=== PATIENT | male | born 1945 | race Caucasian/White ===

== ENCOUNTER 2023-01-12 18:01 | Emergency (ER) | payer OTHER ==
--- OUTSIDE RECORDS SUMMARY | 2023-01-12 18:04 | XMS REPORT | Continuity of Care Document ---
:1945 Author Organization [facility] t Address [address] [facility] [address] [place] [address] Care Team Providers Name Role Phone Tari Saravia MD Primary Care Physician Ian Cristina Attending Clinician Unavailable PADMINI SHER Attending Clinician Unavailable TARI SARAVIA Attending Clinician Unavailable FABRICIO ZHANG Attending Clinician Unavailable RENAE MARADIAGA Attending Clinician Unavailable MD NANNETTE ANDERSON Attending Clinician Unavailable JACKI CALDERON Attending Clinician Unavailable DEO AGUILAR Attending Clinician Unavailable Catrachito Attending Clinician Unavailable MICHAEL TALLEY Attending Clinician Unavailable MD MICHAEL TALLEY Attending Clinician UnavailALBERTA Quevedo Admitting Clinician Unavailable NANNETTE ANDERSON Admitting Clinician Unavailable Catrachito Admitting Clinician Unavailable MICHAEL TALLEY Admitting Clinician Unavailable MD MICHAEL TALLEY Admitting Clinician Unavaila henny Payers Payer Name Policy Type Policy Number Effective Date Expiration Date S ource Problems Condition Condition Condition Status Onset Resolution Last Treating Co mments Source Name Details Category Date Date Treatment Clinician Date CAROLINE (acute CAROLINE (acute Disease Active M ethodi kidney kidney 4-12 st injury) injury) 00:00: Hospita 00 l Hemorrhagi Hemorrhagi Disease Active Overview : Methodi c stroke c stroke 4-[address] 00:00: g of this Hospita 00 note l might be different from the original. Admission 05/20/2021 to 05/27/2021 . 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 3-03 st hemorrhage hemorrhage 00:00: Ho spita 00 l Parkinsoni Parkinsoni Disease Active M ethodi sm sm [address] st 00:00: Hospita 00 l Altered Altered Disease Active Methodi mental mental 10-05 st status status 00:00: Hospita 00 l Palpitatio Palpitatio Disease Active M ethodi ns ns 7 st 00:00: Hospita 00 l Allergies, Adverse Reactions, Alerts Allergy Allergy Status Severity Reaction(s) Onset Inactive Treating Comm ents Source Name Type Date Date Clinician Hunter Franco Active Itching Metho di n ty to [address] adverse 00:00: the body Hospita reaction 00 l s to drug Social History Social Habit Start Date Stop Date Quantity Comments Source Sexual orientation [facility] History of Social 2022-08-11 2022-08-[address] function 00:00:00 00:00:00 Hospital Alcohol intake 2022-08-11 2022-08-11 Current drinker [facility]o dist 00:00:00 [facility] Tobacco use and 2022-03-29 2022-03-29 Smokeless Shinto exposure 00:00:00 00:00:00 tobacco non-user Hospital Alcohol Comment 2021-01-27 2021-01-27 Wine sometime in Met hodist 00:00:00 00:00:00 evening. [facility] went hot outside maybe 1 or 2 Sex Ass[birth year] At [birth year] M Shinto 00:00:00 00:00:00 Hospital Smoking Status Start Date Stop Date Source Never smoked tobacco [facility] Medications Ordered Filled Start Stop Current Ordering Indication Dosage Frequency Signature Comments Components Source Medication Medication Date Date Medication? Clinician (SIG) Name Name escitalopra Yes 20mg QD Take 20 mg Methodi m (LEXAPRO) 1-[address] 20 MG 09:07: daily. Hospita tablet 55 l finasteride Yes 5mg QD Take 5 mg M ethodi (PROSCAR) 5 1-[address] mg tablet 09:07: daily. Hospit a 55 l carbidopa-l Yes 1.5{tbl Q.[id number] Take 1.5 Methodi evodopa 1-10 } [id number] tablets by st (SINEMET) 09:07: 3D mouth 3 Hospi ta 25-100 mg 55 (three) l per tablet times a day. polyethylen Yes 17g Q24H Take 17 g M ethodi e glycol 1-[address] (MIRALAX) 09:07: daily as Hosp mahesh 17 gram 55 needed for l packet constipati on. hydrocortis Yes Q.5D Apply Metho di one 2.5 % 1-[address] cream 09:07: 2 (two) Hospita 55 times a l day as needed for irritation or rash. On scalp metoprolol 2021-03 Yes TAKE 1/2 Met hodi tartrate 2-14 (ONE-HALF) st (LOPRESSOR) 00:00: TABLET BY H ospita 25 mg 00 MOUTH l tablet TWICE DAILY . APPOINTMEN T REQUIRED FOR FUTURE REFILLS atorvastati 2021-03 Yes 40mg QD Take 1 Meth monty n (LIPITOR) 1-01 tablet (40 st 40 mg 00:00: mg total) Hospita tablet 00 by mouth l nightly. memantine Yes [id number] 10mg QD Take 1 Me thodi (NAMENDA) 4-21 tablet (10 st 10 MG 00:00: mg total) Hospita tablet 00 by mouth l every morning. progesteron 2022- No [id number] 100mg QD Take 1 Methodi e 4-21 01-[address] (PROMETRIUM 00:00: 00:00 (100 mg Ho spita ) 100 MG 00 :00 total) by l capsule mouth daily. TAKE 1 CAPSULE BY MOUTH AT BEDTIME FOR BONES, NERVES, MUSCLES, SLEEP minocycline 2022- No TAKE 1 Met hodi (MINOCIN) 3-24 01-[address] 100 MG 00:00: 00:00 MOUTH Hospita capsule 00 :00 TWICE l DAILY FOR STEM CELL STIMULATIO N Immunizations Ordered Immunization Filled Immunization Date Status Commen ts Source Name Name Zoster Vaccine Unknown Completed [facility] FLUCELVAX QUAD PF Unknown Completed [facility] COVID-19 MRNA Unknown Completed [facility] COVID-19 MRNA Unknown Completed [facility] COVID-19 MRNA Unknown Completed [facility] Vital Signs Vital Name Observation Time Observation Value Comments Source Systolic blood 2022-03-29 15:04:00 133 mm[Hg] [facility] pressure Diastolic blood 2022-03-29 15:04:00 73 mm[Hg] [facility]o [facility] pressure Heart rate 2022-03-29 15:04:00 69 /min [facility] Body height 2022-03-29 15:04:00 177.8 cm [facility] Body weight 2022-03-29 15:04:00 90.266 kg [facility] BMI 2022-03-29 15:04:00 28.55 kg/m2 [facility] Oxygen saturation in 2022-03-29 15:04:00 95 /min [facility] Arterial blood by Pulse oximetry Procedures Procedure Date / Time Performed Performing Clinician Sourc e US THYROID 2022-03-31 20:04:59 Padmini Sher [facility] Plan of Care Planned Activity Planned Date Details Comments Source Future Scheduled 2023-01-07 Hepatitis C screening [facility] Test 02:21:15 (procedure) [code = 954728794] Future Scheduled 2023-01-07 RSV VACCINES > 60 YR [facility] Test 02:21:15 (1 - 1-dose 60+ series) [code = RSV VACCINES > 60 YR (1 - 1-dose 60+ series)] Future Scheduled 2023-01-07 65+ PNEUMOCOCCAL [facility] Test 02:21:15 VACCINE (1 - PCV) [code = 65+ PNEUMOCOCCAL VACCINE (1 - PCV)] Future Scheduled 2023-01-07 SHINGLES VACCINES (2 [facility] Test 02:21:15 of 2) [code = SHINGLES VACCINES (2 of 2)] Future Scheduled 2023-01-07 COVID-19 VACCINE (4 - [facility] Test 02:21:15 ) [code = COVID-19 VACCINE (4 - season)] Future Scheduled 2023-01-07 INFLUENZA VACCINE (#1) [facility] Test 02:21:15 [code = INFLUENZA VACCINE (#1)] Encounters Start End Encounter Admission Attending Care Care Encounter Source Date/Time Date/Time Type Type Clinicians Facility Department ID 2022-05-17 2022-05-17 Documentat Ibeth 1.2.840.1 [id number] Methodi 00:00:00 00:00:00 ion Ian Mckenzie [id number] 3.430.2.7 Hospit a .3.513217 l .8 2022-03-31 2022-03-31 Outpatient [facility] [id number] [place] 00:00:00 00:00:00 OSORIO 209 Method i PADMINI 2022-03-29 2022-03-29 Office [facility] 1.2.840.1 [id number] Methodi 09:00:00 09:50:28 Visit Osorio [id number] 157 Padmini B. 3.430.2.7 Hospi ta .3.406369 l .8 2022-03-29 2022-03-29 Outpatient [facility] [id number] [place] 00:00:00 00:00:00 OSORIO, 157 Method i PADMINI 2022-03-29 2022-03-29 Travel 1.2.840.1 [id number] Methodi 00:00:00 00:00:[address] 3.430.2.7 0.2.7.3.698 spita .3.312787 084.8 l .8 2021-07-08 2021-07-08 [facility] [id number] [place] 00:00:00 00:00:00 RAJAVI [address] 2021-06-29 2021-06-30 Outpatient FABRICIO ZHANG [facility] [id number] [place] 00:00:00 00:00:[address] 2021-06-28 2021-06-28 [facility] [id number] [place] 00:00:00 00:00:00 RAJAVI [address] 2021-06-21 2021-06-21 Outpatient [facility] [id number] [place] 00:00:00 00:00:00 TARI [address] 2021-06-08 2021-06-08 Outpatient [facility] [id number] 18:36:00 18:36:00 -[id number] [facility] 2021-06-05 2021-06-05 Outpatient [facility] [id number] 03:03:00 03:03:00 -[id number] [facility] 2021-06-04 2021-06-04 Outpatient [facility] [id number] 09:27:00 09:27:00 -[id number] [facility] 2021-06-03 2021-06-03 Outpatient [facility] [id number] 09:31:00 09:31:00 -[id number] [facility] 2021-06-01 2021-06-01 Outpatient [facility] [id number] 00:32:00 00:32:00 -[id number] [facility] 2021-05-28 2021-05-28 Outpatient [facility] [id number] 04:24:00 04:24:00 -[id number] [facility] 2021-05-27 2021-05-27 Outpatient [facility] [id number] 22:14:00 22:14:00 -[id number] [facility] 2021-05-20 2021-05-27 Inpatient RENAE MARADIAGA [facility] [address] [place] 00:00:00 00:00:[address] 2021-05-20 2021-05-20 Emergency DE [place], [facility] [id number] [place] 00:00:00 00:00:[address] 2021-03-15 2021-03-15 Outpatient [facility] [id number] [place] 00:00:00 00:00:00 Nabil AC Method i PADMINI st 2021-01-28 2021-01-28 Outpatient [facility] [id number] [place] 00:00:00 00:00:00 OSORIO, Beata Method i PADMINI st 2021-01-27 2021-01-27 Outpatient [facility] [id number] [place] 00:00:00 00:00:00 , DEO [address] 2021-01-27 2021-01-27 Outpatient [facility] [id number] [place] 00:00:00 00:00:00 TARI [address] 2020-10-27 2020-10-27 Outpatient Yerramadha_ VFP VFP 171 [id number] [facility] 03:10:00 03:10:00 M [id number] Family Practic e 2020-07-16 2020-07-16 Outpatient [facility] [id number] [place] 00:00:00 00:00:00 , DEO [address] 2020-06-19 2020-06-20 Outpatient CORRALES-KAMLESH [facility] [id number] [place] 00:00:00 00:00:[address] Results Test Description Test Time Test Comments Results Result Comments Source SARS-CoV-2 (COVID-19) RNA [Presence] in Respiratory sp ecimen by 2021-06-30 10:27:43 OG with probe detection Test Item Value Reference Range Interpretation Comme nts SARS-CoV-2 (COVID-19) RNA [Presence] in Respiratory specimen by Not detected OG with probe detection (test code = 69492-4) Whether patient is employed in a healthcare setting (test code = Un known 33852-8) Whether the patient has symptoms related to condition of interest U nknown (test code = 80270-5) Whether the patient was hospitalized for condition of interest Unkn own (test code = 83400-3) Whether the patient was admitted to intensive care unit (ICU) for U nknown condition of interest (test code = 57928-6) Whether patient resides in a congregate care setting (test code = U nknown 25948-3) status (test code = 88537-8) Unknown Date and time of symptom onset (test code = 87623-0) [facility] [Presence] in Respiratory specimen by OG with probe [id number] 14:44:30 Test Item Value Reference Range Interpretation Comments SARS coronavirus RNA [Presence] Not detected in Isolate by OG with probe detection (test code = 10646-9) Whether patient is employed in a Unknown healthcare setting (test code = 52390-3) Whether the patient has symptoms Unknown related to condition of interest (test code = 74019-7) Whether the patient was Unknown hospitalized for condition of interest (test code = 42008-0) Whether the patient was admitted Unknown to intensive care unit (ICU) for condition of interest (test code = 85107-4) Whether patient resides in a Unknown congregate care setting (test code = 88458-2) status (test code = Unknown 93135-4) Date and time of symptom onset Unknown (test code = 07773-2) TEOFILO LARIOSSARS-CoV-2 (COVID-19) RNA [Presence] in Respiratory specimen by OG with probe [id number] 14:44:30 Test Item Value Reference Range Interpretation Comments SARS-CoV-2 (COVID-19) RNA Not detected [Presence] in Respiratory specimen by OG with probe detection (test code = 96695-1) Whether patient is employed in a Unknown healthcare setting (test code = 44404-1) Whether the patient has symptoms Unknown related to condition of interest (test code = 25085-1) Whether the patient was Unknown hospitalized for condition of interest (test code = 25796-6) Whether the patient was admitted Unknown to intensive care unit (ICU) for condition of interest (test code = 83345-9) Whether patient resides in a Unknown congregate care setting (test code = 33570-3) status (test code = Unknown 97310-2) Date and time of symptom onset Unknown (test code = 73971-5) TEOFILO LARIOSSARS-CoV-2 (COVID-19) RNA [Presence] in Respiratory specimen by OG with probe [id number] 01:54:16 Test Item Value Reference Range Interpretation Comments SARS-CoV-2 (COVID-19) RNA Not detected Not-Detected [Presence] in Respiratory specimen by OG with probe detection (test code = 01289-0) [facility]
--- NOTE | 2023-01-12 19:24 | RAD REPORT ---
EXAM DESCRIPTION: Yanira Single View01/12/2023 6:56 pm CLINICAL HISTORY: cough COMPARISON: none FINDINGS: The lungs appear clear of acute infiltrate. The heart is normal size IMPRESSION: No acute abnormalities displayed
--- NOTE | 2023-01-12 19:27 | RAD REPORT ---
EXAM DESCRIPTION: CT - Head Brain Wo Cont - 01/12/2023 7:19 pm CLINICAL HISTORY: Alteration of awareness/confusion COMPARISON: None TECHNIQUE: Computed axial tomography of the head was obtained. IV contrast was not requested. All CT scans are performed using dose optimization technique as appropriate and may include automated exposure control or mA/KV adjustment according to patient size. FINDINGS: An intracranial bleed is not seen The ventricles are normal in caliber No extra-axial fluid collection is noted. 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 The volume loss results in dilatation of the occipital horn left lateral ventricle. Fluid within the sinuses/ mastoids is not seen. Mild chronic sinusitis IMPRESSION: No acute intracranial abnormality is seen If patient's symptoms persist MRI of the brain would be recommended
[2023-01-12 19:58] LABS: Absolute Lymphocytes (CBC) 0.5 K/uL (0.7-4.9); Hematocrit 39.4 % (39.6-49.0); MCV 94.9 fL (80-100); MPV 7.8 fL (7.6-11.3); Platelets 120 thou/uL (152-406); RBC Red Blood Cell Count 4.15 M/uL (4.33-5.43)
[2023-01-12 19:59] LABS: Protime INR 1.08
[2023-01-12 20:21] LABS: Albumin 3.6 g/dL (3.4-5.0); Bilirubin Direct 0.2 mg/dL (0-0.2); Bilirubin Indirect, Calculated 0.2 mg/dL (0.2-0.8); Bilirubin Total 0.4 mg/dL (0.2-1.0); Magnesium 1.9 mg/dL (1.6-2.4); Potassium 3.6 mEq/L (3.5-5.1); Protein, Total 6.8 g/dL (6.4-8.2)
[2023-01-12 20:34] LABS: SARS-CoV-2 Antigen Rapid Res Negative (Negative)
[2023-01-12 20:58] LABS: Specific Gravity 1.027 (1.005-1.030); Urine Bacteria <20 /HPF (<20); Urine Bilirubin NEGATIVE (Negative); Urine Blood 2+ (Negative); Urine Clarity Clear (Clear); Urine Color Yellow (Yellow); Urine Glucose NEGATIVE (Negative); Urine Mucus Slight /HPF (None Seen); Urine Protein 1+ (Negative); Urine Urobilinogen Normal (Normal); Urine pH 5.5 (5.0-7.0)
[2023-01-12] MEDS ORDERED: AZITHROMYCIN 250 MG TAB ONE (20:58)
[2023-01-12] MEDS ORDERED: NA CHLORIDE 0.9% 1,000 ML ONE (20:59)
[2023-01-12] MEDS ORDERED: FAMOTIDINE 20 MG/2 ML VIAL IV ONE (20:59)
[2023-01-12] MEDS ORDERED: CEFTRIAXONE 1000 MG/VIAL ONE (20:59)
--- NOTE | 2023-01-12 21:04 | EDPHYS ---
Physician Documentation [facility] Name: Luis Allred Age: 78 yrs Sex: Male : 1945 Arrival Date: 01/12/2023 Time: 18:01 Bed 19 Private MD: ED Physician Mars Yu HPI: 01/12 19:44 This 78 yrs old Male presents to ER via Ambulatory with complaints of galilea Confusion. 19:44 The patient or guardian reports cough, flu symptoms, arthralgias, myalgias. Onset: The galilea symptoms/episode began/occurred 3 day(s) ago. Modifying factors: The symptoms are alleviated by nothing. the symptoms are aggravated by nothing. The patient presents with confusion, trouble concentrating. Possible causes: CVA or TIA, low blood sugar, seizure, sepsis. The patient or guardian reports. Associated signs and symptoms: Pertinent positives: confusion, dizziness. Severity of symptoms: At their worst the symptoms were mild, in the emergency department the symptoms are unchanged. Associated signs and symptoms: Pertinent positives: nausea, rhinorrhea, sore throat. Current symptoms: In the emergency department the patient's symptoms are unchanged from the initial presentation. Modifying factors: The symptoms are alleviated by nothing, the symptoms are aggravated by nothing. Patient's baseline: Neuro: alert and fully oriented, Motor: no deficits. Severity of symptoms: At their worst the symptoms were mild in the emergency department the symptoms are unchanged. Historical: - Allergies: 18:29 Aleve; ph - PMHx: 18:29 TIA's; ph - PSHx: 18:29 None; ph - Immunization history:: Adult Immunizations up to date. - Social history:: Smoking status: Patient denies any tobacco usage or history of. ROS: 19:46 Constitutional: Negative for fever, chills, and weight loss, Eyes: Negative for injury, galilea pain, redness, and discharge, ENT: Negative for injury, pain, and discharge, Neck: Negative for injury, pain, and swelling, Cardiovascular: Negative for chest pain, palpitations, and edema, Abdomen/GI: Negative for abdominal pain, nausea, vomiting, diarrhea, and constipation, Back: Negative for injury and pain, : Negative for injury, bleeding, discharge, and swelling, MS/Extremity: Negative for injury and deformity, Skin: Negative for injury, rash, and discoloration, Neuro: Negative for headache, weakness, numbness, tingling, and seizure, Psych: Negative for depression, anxiety, suicide ideation, homicidal ideation, and hallucinations, Allergy/Immunology: Negative for hives, rash, and allergies, Endocrine: Negative for neck swelling, polydipsia, polyuria, polyphagia, and marked weight changes, Hematologic/Lymphatic: Negative for swollen nodes, abnormal bleeding, and unusual bruising, 19:46 Respiratory: Positive for cough, "sounds productive", Exam: 19:46 Constitutional: This is a well developed, well nourished patient who is awake, alert, galilea and in no acute distress. Head/Face: Normocephalic, atraumatic. Eyes: Pupils equal round and reactive to light, extra-ocular motions intact. Lids and lashes normal. Conjunctiva and sclera are non-icteric and not injected. Cornea within normal limits. Periorbital areas with no swelling, redness, or edema. ENT: Nares patent. No nasal discharge, no septal abnormalities noted. Tympanic membranes are normal and external auditory canals are clear. Oropharynx with no redness, swelling, or masses, exudates, or evidence of obstruction, uvula midline. Mucous membranes moist. Neck: Trachea midline, no thyromegaly or masses palpated, and no cervical lymphadenopathy. Supple, full range of motion without nuchal rigidity, or vertebral point tenderness. No Meningismus. Chest/axilla: Normal chest wall appearance and motion. Nontender with no deformity. No lesions are appreciated. Cardiovascular: Regular rate and rhythm with a normal S1 and S2. No gallops, murmurs, or rubs. Normal PMI, no JVD. No pulse deficits. Abdomen/GI: Soft, non-tender, with normal bowel sounds. No distension or tympany. No guarding or rebound. No evidence of tenderness throughout. Back: No spinal tenderness. No costovertebral tenderness. Full range of motion. Male : Normal genitalia with no discharge or lesions. Skin: Warm, dry with normal turgor. Normal color with no rashes, no lesions, and no evidence of cellulitis. MS/ Extremity: Pulses equal, no cyanosis. Neurovascular intact. Full, normal range of motion. Neuro: Awake and alert, GCS 15, oriented to person, place, time, and situation. Cranial nerves II-XII grossly intact. Motor strength 5/5 in all extremities. Sensory grossly intact. Cerebellar exam normal. Normal gait. Psych: Awake, alert, with orientation to person, place and time. Behavior, mood, and affect are within normal limits. 19:46 Respiratory: the patient does not display signs of respiratory distress, Respirations: normal, Breath sounds: rhonchi, that are mild, are scattered, stridor, is not appreciated, + upper airway congestion. Respiratory rate: 20 19:46 Neuro: Orientation: is normal, appropriate for stated age, no acute changes, Mentation: is normal, appropriate for stated age, no acute changes, Memory: is normal, appropriate for stated age, no acute changes, Cranial nerves: grossly normal, is grossly normal based on the patient's age, no acute changes, Cerebellar function: is grossly normal, is grossly normal based on the patient's age, no acute changes, Motor: is normal, is grossly normal based on the patient's age, Sensation: no obvious gross deficits, appropriate no acute changes, Gait: not tested. seizure activity, is not displayed by the patient, 20:54 Neck: ROM/movement: is normal, is supple, without pain, no range of motions galilea limitations, no meningismus, no nuchal rigidity, negative Brudzinski's sign, negative Kernig's sign, Lymph nodes: no appreciated lymphadenopathy, 20:54 ECG was reviewed by the Attending Physician. Vital Signs: 18:24 BP 163 / 81; Pulse 66; Resp 20; Temp 98.1; Pulse Ox 95% ; Weight 90.72 kg; Height 5 ft. ph 6 in. ; Pain 1/10; 22:02 BP 153 / 76; Pulse 71; Resp 18; Pulse Ox 98% on R/A; kl 18:24 Body Mass Index 32.28 (90.72 kg, 167.64 cm) ph 18:24 Pain Scale: Adult ph NIH Stroke Scale Scores: 19:46 NIHSS Score: 0 galilea [place] Coma Score: 19:46 Eye Response: spontaneous(4). Motor Response: obeys commands(6). Verbal Response: galilea oriented(5). Total: 15. MDM: 18:25 Patient medically screened. galilea 19:49 Differential diagnosis: obstructed airway, bronchitis, flu, URI. Antibiotic galilea administration: Rocephin and Zithromax given. Differential Diagnosis: CVA, electrolyte abnormality, alcohol intoxication, hypoglycemia, intracranial bleed, pneumonia, sepsis, TIA, UTI, volume depletion. Differential Diagnosis: Obstructed Airway Bronchitis Influenza Upper Respiratory Infection Sinusitis Pharyngitis Viral Syndrome Pneumonia Tracheal Injury. Data reviewed: vital signs, nurses notes, lab test result(s), EKG, radiologic studies, CT scan, plain films. Consideration of Admission/Observation Patient was admitted/placed on observation. Escalation of care including admission/observation considered. I considered the following discharge prescriptions or medication management in the emergency department Medications were administered in the Emergency Department. See MAR. Test considered but Not performed: MRI: NO MRI BRAIN. Historians other than the Patient: Spouse/Significant Other: WELL INFORMED. Care significantly affected by the following chronic conditions: Hypertension, Obesity, PARKINSONISM. Counseling: I had a detailed discussion with the patient and/or guardian regarding the historical points, exam findings, and any diagnostic results supporting the discharge/admit diagnosis, lab results, radiology results, the need for further work-up and treatment in the hospital. 01/12 18:28 Order name: Basic Metabolic Panel; Complete Time: 20:21 [facility] 01/12 18:28 Order name: CBC with Diff; Complete Time: 20:21 [facility] 01/12 18:28 Order name: LFT's; Complete Time: 20:21 [facility] 01/12 18:28 Order name: Magnesium; Complete Time: 20:21 [facility] 01/12 18:28 Order name: NT PRO-BNP; Complete Time: 20:21 [facility] 01/12 18:28 Order name: PT-INR; Complete Time: 20:02 [facility] 01/12 18:28 Order name: Troponin HS; Complete Time: 20:21 [facility] 01/12 18:28 Order name: Lipase; Complete Time: 20:21 [facility] 01/12 18:28 Order name: Urinalysis w/ reflexes [facility] 01/12 18:28 Order name: Blood Culture Adult (2) [facility] 01/12 18:28 Order name: Lactate w/ 2H reflex if indic.; Complete Time: 20:21 [facility] 01/12 19:41 Order name: SARS-COV-2 Antigen Rapid; Complete Time: 20:56 [facility] 01/12 19:41 Order name: Flu; Complete Time: 20:56 [facility] 01/12 19:41 Order name: Strep; Complete Time: 20:56 [facility] 01/12 21:00 Order name: Throat Culture [facility] 01/12 18:28 Order name: XRAY Chest (1 view); Complete Time: 19:42 [facility] 01/12 18:28 Order name: CT Head Brain wo Cont; Complete Time: 19:42 [facility] 01/12 18:28 Order name: EKG; Complete Time: 18:29 [facility] 01/12 18:28 Order name: Cardiac monitoring; Complete Time: 21:12 [facility] 01/12 18:28 Order name: EKG - Nurse/Tech; Complete Time: 20:48 [facility] 01/12 18:28 Order name: IV Saline Lock; Complete Time: 21:12 [facility] 01/12 18:28 Order name: Labs collected and sent; Complete Time: 21:12 [facility] 01/12 18:28 Order name: O2 Per Protocol [facility] 01/12 18:28 Order name: O2 Sat Monitoring galilea EC:54 Rate is 62 beats/min. Rhythm is regular. QRS [place] is Normal. SD interval is normal. QRS galilea interval is normal. QT interval is normal. No Q waves. T waves are Normal. No ST changes noted. Clinical impression: NSR w/ Non-specific ST/T Changes and No evidence of ischemia. Interpreted by me. Reviewed by me. Administered Medications: 21:18 Drug: NS 0.9% IV 500 ml IV at bolus once Route: IV; Rate: bolus; Site: right antecubital; 22:03 Follow up: IV Status: Completed infusion kl 21:18 Drug: Famotidine IVP 20 mg IVP once; dilute with 10 mL 0.9% NaCl; give over 2 minutes kl Route: IVP; Site: right antecubital; 22:03 Follow up: Response: No adverse reaction kl 21:18 Drug: AZITHromycin PO 500 mg PO once Route: PO; kl 22:03 Follow up: Response: No adverse reaction kl 21:18 Drug: Acetaminophen PO 650 mg PO once Route: PO; kl 21:19 Not Given (Physician Discretion): ns 0.9% 1000 ml IV at 125 ml/hr continuous kl 21:19 Drug: Rocephin IV 1 grams IV at per protocol once; Given slow IV push per pharmacy kl instructions Route: IV; Rate: per protocol; Site: right antecubital; 22:03 Follow up: IV Status: Completed infusion; IV Intake: 50ml kl 22:01 Drug: Oseltamivir PO 75 mg PO once Route: PO; kl 22:03 Follow up: Response: No adverse reaction Disposition Summary: 01/12/23 21:03 Discharge Ordered Notes: Location: Home [facility] Problem: new galilea Symptoms: have improved galilea Condition: Stable galilea Diagnosis - Influenza due to other identified influenza virus with other respiratory [facility] manifestations - Weakness galilea - Acute upper respiratory infection, unspecified - INFLUENZA A galilea - Cough galilea - Altered mental status, unspecified galilea Followup: [facility] - With: Private Physician - When: 2 - 3 days - Reason: Recheck today's complaints, Re-evaluation by your physician Discharge Instructions: - Discharge Summary Sheet galilea - Confusion galilea - Fever, Adult galilea - Influenza, Adult galilea - Weakness [facility] - Cool Mist Vaporizer galilea - Influenza Tests galilea - Upper Respiratory Infection, Adult, Bosi-mx-Sciv galilea - Influenza, Adult, Rvpu-st-Qoir galilea - Cough, Adult, Aqnj-br-Lzko galilea - Weakness, Ddva-tl-Jofj galilea - Cough, Adult galilea - Fever, Adult, Aini-pc-Thyc [facility] Forms: - Medication Reconciliation Form [facility] - Thank You Letter [facility] - Antibiotic Education [facility] - Prescription Opioid Use [facility] - Patient Portal Instructions [facility] - Leadership Thank You Letter [facility] Prescriptions: - albuterol sulfate 90 mcg/actuation Inhalation HFA Aerosol Inhaler - inhale 2 puff INHALATION route every 4 to 6 hours as needed for shortness of galilea breath or wheezing; 1 unit; Refills: 0, Product Selection Permitted - Pepcid 20 mg Oral tablet - take 1 tablet ORAL route every 12 hours for 21 days; 42 tablet; Refills: 0, [facility] Product Selection Permitted - Tessalon Perles 100 mg Oral capsule - take 2 capsule ORAL route every 8 hours As needed; 36 capsule; Refills: 0, [facility] Product Selection Permitted - Zithromax Z-Sunny 250 mg Oral tablet - take 1 tablet ORAL route as directed for 5 days Day 1 - take two (2) tablets galilea one time. Day 2, 3, 4 , 5 take one (1) tablet once daily.; 6 tablet; Refills: 0, Product Selection Permitted - Tamiflu 75 mg Oral capsule - take 1 tablet ORAL route every 12 hours for 5 days; 10 tablet; Refills: 0, [facility] Product Selection Permitted NIH Stroke Scale - NIH Stroke Score Date: 01/12/2023 Time: 19:46 Total Score = 0 10. Dysarthria (speech clarity - read or repeat words) - 0(Normal) 11. Extinction and Inattention (visual/tactile/auditory/spatial/personal) - 0(No abnormality) 1a. Level of Consciousness (LOC) - 0(Alert) 1b. Level of Consciousness (LOC) (Month \\T\\ Age) - 0(Both) 1c. LOC Commands (Open \\T\\ Closes Eyes/Container Filler) - 0(Both) 2. Best Gaze (Lateral Gaze Paresis) - 0(Normal) 3. Visual Field Loss - 0(No visual loss) 4. Facial Palsy - 0(Normal) 5a. Left Arm: Motor (10-second hold) - 0(No drift) 5b. Right Arm: Motor (10-second hold) - 0(No drift) 6a. Left Leg: Motor (5-second hold - always test supine) - 0(No drift) 6b. Right Leg: Motor (5-second hold - always test supine) - 0(No drift) 7. Limb Ataxia (finger/nose \\T\\ heel/poon - test with eyes open) - 0(Absent) 8. Sensory Loss (pinprick arms/legs/face) - 0(Normal) 9. Best Language: Aphasia (description/naming/reading) - 0(No aphasia) Initials: galilea Signatures: Dispatcher [employer] Crystal Stearns RN RN kl Anderson, Corey, MD MD cha Hall, Patricia, RN RN ph Corrections: (The following items were deleted from the chart) 18:30 18:29 PMHx: None; ph ph
--- NOTE | 2023-01-12 21:04 | ER ---
Nurse's Notes [facility] Name: Luis Allred Age: 78 yrs Sex: Male : 1945 Arrival Date: 01/12/2023 Time: 18:01 Bed 19 Private MD: Diagnosis: Influenza due to other identified influenza virus with other respiratory manifestations;Weakness;Acute upper respiratory infection, unspecified-INFLUENZA A;Cough;Altered mental status, unspecified Presentation: 01/12 18:24 Chief complaint: Patient states: Chest congestion for 2 days. OTERO, nausea, and confusion ph started today. Coronavirus screen: Vaccine status: Patient reports receiving the 2nd dose of the covid vaccine. Client denies travel out of the [place] in the last 14 days. congestion, fatigue, headache, Client presents with at least one sign or symptom that may indicate coronavirus-19. Standard/surgical mask placed on the client. Ebola Screen: Patient denies travel to an Ebola-affected area in the 21 days before illness onset. Initial Sepsis Screen: Does the patient meet any 2 criteria? No. Patient's initial sepsis screen is negative. Does the patient have a suspected source of infection? No. Patient's initial sepsis screen is negative. Risk Assessment: Do you want to hurt yourself or someone else? Patient reports no desire to harm self or others. Onset of symptoms was January 11, 2023. 18:24 Method Of Arrival: Ambulatory ph 18:24 Acuity: XENA 3 ph Historical: - Allergies: 18:29 Aleve; ph - PMHx: 18:29 TIA's; ph - PSHx: 18:29 None; ph - Immunization history:: Adult Immunizations up to date. - Social history:: Smoking status: Patient denies any tobacco usage or history of. Screenin:50 [facility] ED Fall Risk Assessment (Adult) History of falling in the last 3 months, kl including since admission No falls in past 3 months (0 pts) Confusion or Disorientation Yes (5 pts) Intoxicated or Sedated No (0 pts) Impaired Gait Yes (1 pt) Mobility Assist Device Used Yes (1 pt) Altered Elimination No (0 pt) Score/Fall Risk Level 3 or more points = High Risk Oriented to surroundings, Maintained a safe environment, Educated pt \T\ family on fall prevention, incl call for assistance when getting out of bed, Hourly rounding (assess needs \T\ fall precautionary measures) done, Used ambulatory aids as needed (educated on \T\ assisted with), Used gait belt as appropriate Utilized family, sitter, or virtual water aerobics instructor as indicated. Abuse screen: Denies threats or abuse. Nutritional screening: No deficits noted. Tuberculosis screening: No symptoms or risk factors identified. Assessment: 19:50 General: Appears in no apparent distress. Behavior is calm, cooperative. Pain: Denies kl pain. Neuro: Level of Consciousness is awake, alert, obeys commands, confused, Oriented to person, situation, Speech is normal, Facial symmetry appears normal, Pupils are PERRLA. Cardiovascular: No deficits noted. Respiratory: No deficits noted. Airway is patent Trachea midline Respiratory effort is even, unlabored, Parent/caregiver reports the patient having cough that is non-productive. GI: No deficits noted. : No deficits noted. No signs and/or symptoms were reported regarding the genitourinary system. 20:45 Reassessment: Patient appears in no apparent distress at this time. Patient and/or kl family updated on plan of care and expected duration. Pain level reassessed. Patient states symptoms have improved. Vital Signs: 18:24 BP 163 / 81; Pulse 66; Resp 20; Temp 98.1; Pulse Ox 95% ; Weight 90.72 kg; Height 5 ft. ph 6 in. ; Pain 1/10; 22:02 BP 153 / 76; Pulse 71; Resp 18; Pulse Ox 98% on R/A; kl 18:24 Body Mass Index 32.28 (90.72 kg, 167.64 cm) ph 18:24 Pain Scale: Adult ph [place] Coma Score: 19:46 Eye Response: spontaneous(4). Motor Response: obeys commands(6). Verbal Response: galilea oriented(5). Total: 15. NIH Stroke Scale Scores: 19:46 NIHSS Score: 0 galilea ED Course: 18:04 Patient arrived in ED. mr 18:24 Arm band placed on. ph 18:25 Mars Yu MD is Attending Physician. galilea 18:29 Triage completed. ph 18:58 XRAY Chest (1 view) In Process Unspecified. EDMS 19:21 CT Head Brain wo Cont In Process Unspecified. EDMS 19:50 Inserted saline lock: 20 gauge in right antecubital area, using aseptic technique. kl Blood collected. 20:16 Strep Sent. kl 20:16 Flu Sent. kl 20:16 SARS-COV-2 Antigen Rapid Sent. kl 21:30 No apparent distress. Resting quietly. kl 22:04 No provider procedures requiring assistance completed. IV discontinued, intact, kl bleeding controlled, No redness/swelling at site. Pressure dressing applied. Administered Medications: 21:18 Drug: NS 0.9% IV 500 ml IV at bolus once Route: IV; Rate: bolus; Site: right kl antecubital; 22:03 Follow up: IV Status: Completed infusion kl 21:18 Drug: Famotidine IVP 20 mg IVP once; dilute with 10 mL 0.9% NaCl; give over 2 minutes kl Route: IVP; Site: right antecubital; 22:03 Follow up: Response: No adverse reaction kl 21:18 Drug: AZITHromycin PO 500 mg PO once Route: PO; kl 22:03 Follow up: Response: No adverse reaction kl 21:18 Drug: Acetaminophen PO 650 mg PO once Route: PO; kl 21:19 Not Given (Physician Discretion): ns 0.9% 1000 ml IV at 125 ml/hr continuous kl 21:19 Drug: Rocephin IV 1 grams IV at per protocol once; Given slow IV push per pharmacy kl instructions Route: IV; Rate: per protocol; Site: right antecubital; 22:03 Follow up: IV Status: Completed infusion; IV Intake: 50ml kl 22:01 Drug: Oseltamivir PO 75 mg PO once Route: PO; kl 22:03 Follow up: Response: No adverse reaction kl Intake: 22:03 IV: 50ml; Total: 50ml. Outcome: 21:03 Discharge ordered by MD. calero 22:11 Patient left the ED. NIH Stroke Scale - NIH Stroke Score Date: 01/12/2023 Time: 19:46 Total Score = 0 10. Dysarthria (speech clarity - read or repeat words) - 0(Normal) 11. Extinction and Inattention (visual/tactile/auditory/spatial/personal) - 0(No abnormality) 1a. Level of Consciousness (LOC) - 0(Alert) 1b. Level of Consciousness (LOC) (Month \T\ Age) - 0(Both) 1c. LOC Commands (Open \T\ Closes Eyes/Interface Designer) - 0(Both) 2. Best Gaze (Lateral Gaze Paresis) - 0(Normal) 3. Visual Field Loss - 0(No visual loss) 4. Facial Palsy - 0(Normal) 5a. Left Arm: Motor (10-second hold) - 0(No drift) 5b. Right Arm: Motor (10-second hold) - 0(No drift) 6a. Left Leg: Motor (5-second hold - always test supine) - 0(No drift) 6b. Right Leg: Motor (5-second hold - always test supine) - 0(No drift) 7. Limb Ataxia (finger/nose \T\ heel/poon - test with eyes open) - 0(Absent) 8. Sensory Loss (pinprick arms/legs/face) - 0(Normal) 9. Best Language: Aphasia (description/naming/reading) - 0(No aphasia) Initials: galilea Signatures: Dispatcher [employer] Crystal Stearns RN RN kl Anderson, Corey, MD MD cha Rivera Nellie, [facility] Doreen Tapia RN RN ph Corrections: (The following items were deleted from the chart) 18:30 18:29 PMHx: None; ph ph
[2023-01-12 22:27] VITALS: TEMP 98.1
[2023-01-12 22:28] VITALS: BP 153/76; O2SAT 98
--- NOTE | 2023-01-13 15:44 | EKG ---
Test Date: 2023-01-12 Test Time: 20:42:45 [employer] Teacher: GRISEL MEASUREMENT RESULTS: Intervals: Rate: 62 AL: 156 QRSD: 84 QT: 404 QTc: 410 [place]: P: 61 AL: 156 QRS: 35 T: 71 INTERPRETIVE STATEMENTS: Normal sinus rhythm Normal ECG No previous ECG available for comparison Electronically Signed On 01-13-23 15:42:10 CDT by Jhoan Frey
== END 2023-01-12 22:11 | disposition home or self-care (01) ==
LOC: ER 18:01
DX: J10.1 Influenza due to other identified influenza virus with other respiratory manifestations (principal); Z20.822 Contact with and (suspected) exposure to COVID-19; Z86.73 Personal history of transient ischemic attack (TIA), and cerebral infarction without residual deficits
CPT/HCPCS: 96365; 93005; 87040 ×2; 87070; 85025; 81001; 80048; 36415; 83735; 85610; 80076; 87081; 83605; 84484; 83690; 83880; 87804 ×2; 70450; 71045; 96375; 99284; 87811; J7030; J0696